=== PATIENT | male | born 1965 | race Caucasian/White ===

== ENCOUNTER 2018-10-29 02:48 | Emergency (ER) | payer SELFPAY ==
--- NOTE | 2018-10-29 17:13 | RAD ---
PORTABLE CHEST: 10/29/18 An AP portable film at 0311 shows a normal sized heart and clear lungs. No infiltrate or effusion was seen. There is no vascular congestion or edema. The mediastinum appears normal. A tiny nodular densi ty a few centimeters to the left of the aorta is most likely either a small granuloma or a vessel see n on end. IMPRESSION: No acute thoracic findings. POS: HOME
== END 2018-10-29 05:00 | disposition home or self-care (01) ==
LOC: BURERS 02:48
DX: J44.1 Chronic obstructive pulmonary disease with (acute) exacerbation (principal)
CPT/HCPCS: 71045